=== PATIENT | female | born 1965 | race American Indian/Alaskan Native ===

== ENCOUNTER 2017-09-27 21:31 | Emergency (ER) | payer OTHER ==
[2017-09-27 22:34] LABS: Hematocrit 42.2 % (30.3-42.9); Mean Corpuscular HGB Conc 33 % (30-34); Mean Corpuscular Hemoglobin 27 pg (28-32); Mean Corpuscular Volume 82 fl (79-97); Platelet Count 463 K/mm3 (140-440); Red Blood Count 5.18 M/mm3 (3.65-5.03)
[2017-09-27 22:56] LABS: Alanine Aminotransferase 34 units/L (7-56); Albumin 4.2 g/dL (3.9-5); BUN/Creatinine Ratio 23; Blood Urea Nitrogen 14 mg/dL (7-17); Calcium 10.1 mg/dL (8.4-10.2); Hemolysis Index 3
[2017-09-27 23:17] LABS: Basophils % (Manual) 0 % (0.0-1.8); Total Cells Counted 100
[2017-09-27 23:18] LABS: Anisocytosis 1+; Platelet Estimate Consistent w Auto
[2017-09-28] MEDS ORDERED: MORPHINE IV ONE (10:09)
[2017-09-28] MEDS ORDERED: NACL 0.9% 1000 ML 1,000 ML IV ONE (10:09)
--- NOTE | 2017-09-28 11:09 | Cat Scan Report ---
CT LOWER EXTREMITY RIGHT WITHOUT CONTRAST HISTORY: Right hip pain. TECHNIQUE: Helical CT with sagittal and coronal reformatted images. COMPARISON: None. Findings: Normal bone mineralization. No evidence for fracture, dislocation, osteonecrosis or bone lesion. Minimal osteoarthritic changes are identified. The visualized right hemipelvis is intact. The soft tissues are unremarkable. IMPRESSION: Essentially unremarkable CT of the right hip. No acute injury is identified. Minimal osteoarthritic changes.
[2017-09-28] MEDS ORDERED: ZOFRAN IV ONE (11:37)
[2017-09-28 12:19] VITALS: BP 133/83
--- NOTE | 2017-09-28 13:28 | Emergency Department Report ---
Upper Extremity - [facility] Chief Complaint: Extremity Problem,Nontraumatic Stated Complaint: RIGHT LEG PAIN,HIP Time Seen by Provider: 09/28/17 09:27 ED Review of Systems ROS: Stated complaint: RIGHT LEG PAIN,HIP Other details as noted in HPI ED Past Medical Hx - Past Medical History Hx Hypertension: Yes Hx Heart Attack/AMI: No Hx Congestive Heart Failure: No Hx Diabetes: Yes (type 2) Hx Deep Vein Thrombosis: No Hx GERD: Yes Hx Liver Disease: No Hx Sickle Cell Disease: No Hx Seizures: No Hx Asthma: No Hx COPD: No Hx HIV: No - Surgical History Hx Coronary Stent: No Hx Open Heart Surgery: No Hx Breast Surgery: No Additional Surgical History: partial hysterectomy. prolapsed bladder with repair - Social History Smoking Status: Never Smoker Substance Use Type: None - Medications Home Medications: Home Medications Medication Instructions Recorded Confirmed Last Taken Type Insulin Glargine [Lantus VIAL] 10 units SUB-Q QHS 30 Days units 08/26/17 Unknown Rx Levofloxacin [Levaquin] 750 mg PO QDAY #7 tablet 08/26/17 Unknown Rx amLODIPine [Norvasc] 10 mg PO QDAY #30 tablet 08/26/17 Unknown Rx Upper Extremity Exam - Exam General: Vital signs noted. No distress. Alert and acting appropriately. ED Course Vital Signs 09/27/17 09/28/17 09/28/17 22:13 03:07 03:20 Temperature 98.8 F Pulse Rate 124 H 97 H Respiratory 16 18 18 Rate Blood Pressure 151/95 Blood Pressure 143/81 [Left] O2 Sat by Pulse 95 96 Oximetry 09/28/17 09/28/17 09/28/17 05:25 09:00 09:17 Temperature 98.4 F Pulse Rate 94 H 98 H Respiratory 16 18 Rate Blood Pressure Blood Pressure 151/74 122/75 [Left] O2 Sat by Pulse 97 99 98 Oximetry 09/28/17 09/28/17 09/28/17 09:30 09:46 10:00 Temperature Pulse Rate 90 91 H 89 Respiratory 18 23 19 Rate Blood Pressure 112/72 133/79 127/79 Blood Pressure [Left] O2 Sat by Pulse 97 98 97 Oximetry 09/28/17 09/28/17 09/28/17 10:15 10:47 11:00 Temperature Pulse Rate 91 H 96 H 93 H Respiratory 22 13 16 Rate Blood Pressure 133/83 133/83 133/83 Blood Pressure [Left] O2 Sat by Pulse 98 100 Oximetry 09/28/17 09/28/17 09/28/17 11:16 11:30 11:46 Temperature Pulse Rate 93 H 89 87 Respiratory 20 19 22 Rate Blood Pressure 172/122 133/83 133/83 Blood Pressure [Left] O2 Sat by Pulse 100 95 97 Oximetry 09/28/17 12:00 Temperature Pulse Rate 97 H Respiratory 21 Rate Blood Pressure 133/83 Blood Pressure [Left] O2 Sat by Pulse 97 Oximetry ED Medical Decision Making - Lab Data Result diagrams: 09/27/17 22:24 09/27/17 22:24 Critical care attestation.: If time is entered above; I have spent that time in minutes in the direct care of this critically ill patient, excluding procedure time. ED Disposition Condition: Stable Referrals: GUDELIA MANZANO MD [Primary Care Provider] - 3-5 Days
--- NOTE | 2017-09-28 13:34 | Emergency Department Report ---
ED Extremity Problem HPI - General Chief complaint: Extremity Problem,Nontraumatic Stated complaint: RIGHT LEG PAIN,HIP Time Seen by Provider: 09/28/17 09:27 Source: patient Mode of arrival: Ambulatory Limitations: No Limitations, Physical Limitation - History of Present Illness Complaint: extremity pain -: Gradual Location: right, lower extremity History of Same: No Radiation: none Severity scale (0 -10): 6 Quality: sharp Consistency: constant Improves with: nothing Worsens with: nothing Associated Symptoms: arthralgias - Related Data Previous Rx's Medication Instructions Recorded Last Taken Type Insulin Glargine [Lantus VIAL] 10 units SUB-Q QHS 30 Days units 08/26/17 Unknown Rx Levofloxacin [Levaquin] 750 mg PO QDAY #7 tablet 08/26/17 Unknown Rx amLODIPine [Norvasc] 10 mg PO QDAY #30 tablet 08/26/17 Unknown Rx Ibuprofen [Motrin] 800 mg PO Q8HR PRN 7 Days #20 09/28/17 Unknown Rx tablet Allergies Allergy/AdvReac Type Severity Reaction Status Date / Time latex Allergy Swelling Verified 08/22/17 08:17 Sulfa (Sulfonamide Allergy Hives Verified 08/22/17 08:17 Antibiotics) ED Review of Systems ROS: Stated complaint: RIGHT LEG PAIN,HIP Other details as noted in HPI Comment: All other systems reviewed and negative Constitutional: denies: chills, fever Eyes: denies: vision change ENT: denies: ear pain Respiratory: no symptoms reported. denies: shortness of breath Cardiovascular: denies: chest pain, palpitations Endocrine: no symptoms reported Gastrointestinal: denies: abdominal pain, nausea, vomiting, diarrhea Genitourinary: denies: urgency, dysuria, frequency Musculoskeletal: arthralgia Skin: denies: rash, change in color Neurological: denies: headache, weakness, numbness, paresthesias Psychiatric: denies: homicidal thoughts, suicidal thoughts Hematological/Lymphatic: denies: easy bleeding, easy bruising ED Past Medical Hx - Past Medical History Hx Hypertension: Yes Hx Heart Attack/AMI: No Hx Congestive Heart Failure: No Hx Diabetes: Yes (type 2) Hx Deep Vein Thrombosis: No Hx GERD: Yes Hx Liver Disease: No Hx Sickle Cell Disease: No Hx Seizures: No Hx Asthma: No Hx COPD: No Hx HIV: No - Surgical History Hx Coronary Stent: No Hx Open Heart Surgery: No Hx Breast Surgery: No Additional Surgical History: partial hysterectomy. prolapsed bladder with repair - Social History Smoking Status: Never Smoker Substance Use Type: None - Medications Home Medications: Home Medications Medication Instructions Recorded Confirmed Last Taken Type Insulin Glargine [Lantus VIAL] 10 units SUB-Q QHS 30 Days units 08/26/17 Unknown Rx Levofloxacin [Levaquin] 750 mg PO QDAY #7 tablet 08/26/17 Unknown Rx amLODIPine [Norvasc] 10 mg PO QDAY #30 tablet 08/26/17 Unknown Rx Ibuprofen [Motrin] 800 mg PO Q8HR PRN 7 Days #20 09/28/17 Unknown Rx tablet ED Physical Exam - General Limitations: No Limitations, Physical Limitation General appearance: alert, in no apparent distress - Head Head exam: Present: atraumatic, normocephalic, normal inspection - Eye Eye exam: Present: normal appearance, PERRL, EOMI Pupils: Present: normal accommodation - ENT ENT exam: Present: normal exam, normal orophraynx, mucous membranes moist - Neck Neck exam: Present: normal inspection, full ROM - Respiratory Respiratory exam: Present: normal lung sounds bilaterally. Absent: respiratory distress, wheezes, rhonchi - Cardiovascular Cardiovascular Exam: Present: tachycardia. Absent: normal rhythm, normal heart sounds - GI/Abdominal GI/Abdominal exam: Present: soft, normal bowel sounds. Absent: tenderness, guarding, rebound - Extremities Exam Extremities exam: Present: normal inspection, full ROM, tenderness (right hip tenderness to palpation.), normal capillary refill. Absent: pedal edema, joint swelling - Back Exam Back exam: Present: normal inspection, full ROM - Neurological Exam Neurological exam: Present: alert, oriented X3, CN II-XII intact - Psychiatric Psychiatric exam: Present: normal affect - Skin Skin exam: Present: warm, dry, intact, normal color ED Course Vital Signs 09/27/17 09/28/17 09/28/17 22:13 03:07 03:20 Temperature 98.8 F Pulse Rate 124 H 97 H Respiratory 16 18 18 Rate Blood Pressure 151/95 Blood Pressure 143/81 [Left] O2 Sat by Pulse 95 96 Oximetry 09/28/17 09/28/17 09/28/17 05:25 09:00 09:17 Temperature 98.4 F Pulse Rate 94 H 98 H Respiratory 16 18 Rate Blood Pressure Blood Pressure 151/74 122/75 [Left] O2 Sat by Pulse 97 99 98 Oximetry 09/28/17 09/28/17 09/28/17 09:30 09:46 10:00 Temperature Pulse Rate 90 91 H 89 Respiratory 18 23 19 Rate Blood Pressure 112/72 133/79 127/79 Blood Pressure [Left] O2 Sat by Pulse 97 98 97 Oximetry 09/28/17 09/28/17 09/28/17 10:15 10:47 11:00 Temperature Pulse Rate 91 H 96 H 93 H Respiratory 22 13 16 Rate Blood Pressure 133/83 133/83 133/83 Blood Pressure [Left] O2 Sat by Pulse 98 100 Oximetry 09/28/17 09/28/17 09/28/17 11:16 11:30 11:46 Temperature Pulse Rate 93 H 89 87 Respiratory 20 19 22 Rate Blood Pressure 172/122 133/83 133/83 Blood Pressure [Left] O2 Sat by Pulse 100 95 97 Oximetry 09/28/17 12:00 Temperature Pulse Rate 97 H Respiratory 21 Rate Blood Pressure 133/83 Blood Pressure [Left] O2 Sat by Pulse 97 Oximetry ED Medical Decision Making - Lab Data Result diagrams: 09/27/17 22:24 09/27/17 22:24 - Medical Decision Making Right hip pain. Rule out DVT. Critical care attestation.: If time is entered above; I have spent that time in minutes in the direct care of this critically ill patient, excluding procedure time. ED Disposition Clinical Impression: Unspecified sprain of right hip, initial encounter Disposition: - TO HOME OR SELFCARE Is pt being admited?: No Does the pt Need Aspirin: No Condition: Stable Additional Instructions: Please follow up with your primary doctor tomorrow morning. Return to the emergency room if her condition worsen. Prescriptions: Ibuprofen [Motrin] 800 mg PO Q8HR PRN 7 Days #20 tablet PRN Reason: Pain Referrals: GUDELIA MANZANO MD [Primary Care Provider] - 3-5 Days
== END 2017-09-28 14:19 | disposition home or self-care (01) ==
LOC: ED 21:31
DX: S73.101A Unspecified sprain of right hip, initial encounter (principal); E11.9 Type 2 diabetes mellitus without complications; I10 Essential (primary) hypertension; K21.9 Gastro-esophageal reflux disease without esophagitis; Z79.4 Long term (current) use of insulin; Z91.040 Latex allergy status; Z88.2 Allergy status to sulfonamides; Z90.711 Acquired absence of uterus with remaining cervical stump; X58.XXXA Exposure to other specified factors, initial encounter; Y93.89 Activity, other specified; Y92.89 Other specified places as the place of occurrence of the external cause; Y99.8 Other external cause status
CPT/HCPCS: 36415; 73700; 80053; 82550; 85007; 85025; 93005; 93010; 93971; 96361; 96374; 96375; 99284; J2270; J2405; J7030